=== PATIENT | female | born 1980 | race Caucasian/White ===

== ENCOUNTER → 2023-07-02 16:32 | Outpatient (CLI) | payer OTHER, SELFPAY ==
--- NOTE | 2023-07-02 16:34 | DI.MG.S_ITS ---
BILATERAL DIGITAL SCREENING MAMMOGRAM 3D/2D WITH CAD: 07/02/2023 CLINICAL: Baseline exam. Routine screening. No prior exams were available for comparison. Both breasts are heterogeneously dense, which may obscure small masses (category c / 51-75% glandular tissue). Current study was also evaluated with a Computer Aided Detection (CAD) system. There are benign intramammary nodes in the right breast. No significant masses, calcifications, or other findings are seen in either breast. IMPRESSION: BENIGN There is no mammographic evidence of malignancy. A 1 year screening mammogram is recommended. Based on the Tyrer Cuzick model (a risk assessment model) the patient's lifetime risk is 14.7% and her 10 year risk is 2.4%. According to the ACR, ACS, and NCCN guidelines, an annual breast MRI exam along with mammogram is recommended if the patient's lifetime risk is 20% or greater. This exam was interpreted at Station ID: [id number]. NOTE: For mammograms, a report in lay terms will be sent to the patient. Approximately 15% of breast malignancies will not be visualized mammographically. In the management of a palpable breast mass, a negative mammogram must not discourage biopsy of a clinically suspicious lesion. Electronically Signed By: Roney little/roque:07/03/2023 07:14:58 letter sent: Normal Exam ACR BI-RADS Category 2: Benign Finding(s) 3342F
== END ==
PROVIDERS: PCP Family Medicine; Referring Provider Family Medicine; Visit Provider Family Medicine
DX: Z12.31 Encounter for screening mammogram for malignant neoplasm of breast (principal)
CPT/HCPCS: 77063; 77067

== ENCOUNTER → 2023-09-04 14:09 | Outpatient (CLI) | payer OTHER, SELFPAY ==
--- NOTE | 2023-09-04 14:11 | DI.US.S_ITS ---
PROCEDURE: US PELVIC COMPLETE INDICATIONS: IUD LOCATION TECHNIQUE: Real-time scanning was performed of the pelvic organs, with image documentation. Additional endovaginal scanning was necessary due to incomplete visualization of the adnexal and endometrial structures by transabdominal scanning. COMPARISON: None. FINDINGS: Uterus: Uterus is retroverted and normal in size at 7.8 x 4.8 x 5.6 cm. The myometrium is homogeneous. The endometrium measures 8 mm combined thickness. IUD within the central endometrium. Ovaries: The right ovary measures 3.5 x 1.6 x 2.4 cm, with a calculated ovarian volume of 7 cc. The left ovary measures 3.0 x 1.6 x 2.1 cm, with a calculated ovarian volume of 5 cc. The ovaries have a normal sonographic appearance. Less than 12 follicles can be seen in each ovary. No adnexal masses are seen. Other: No pathologic free abdominal or pelvic fluid. IMPRESSION: IUD within the central uterus. We strive to produce accurate, complete, and clear reports of imaging services. To assist us in improving patient care, this report was composed using standard report templates and voice recognition software. Therefore, it may contain abnormal punctuation, insertions and/or omissions. Occasional wrong-word or sound-alike substitutions may occur. Though we review the report and make efforts to correct it, we do recommend that the report be read carefully in proper context to recognize any text inaccuracies. Dictated by: Efren Sams M.D. on 09/04/2023 at 17:08 Approved by: Efren Sams M.D. on 09/04/2023 at 17:09
== END ==
LOC: US 14:10
PROVIDERS: PCP Family Medicine; Referring Provider Family Medicine; Visit Provider Family Medicine
DX: T83.32XA Displacement of intrauterine contraceptive device, initial encounter (principal)
CPT/HCPCS: 76830; 76856

== ENCOUNTER 2024-05-04 07:42 | Observation (INO) | payer OTHER, SELFPAY ==
[2024-05-04] VITALS (22 sets, daily range): BP systolic 123–168; BP diastolic 69–93; PULSE 66–81; RESP 11–22; TEMP 36.8–37.6; O2SAT 93–100; BMI 21.9
--- NOTE | 2024-05-04 | PATH_ITS ---
[facility] Accession Number: [id number] No. of containers..01 Tissue . 01 Material submitted: . gallbladder - GALLBLADDER . 01 Diagnosis: GALLBLADDER, CHOLECYSTECTOMY: Acute on chronic cholecystitis and cholelithiasis. One benign lymph node identified. [facility] 05/10/2024 1120 Local . 01 Electronically signed: . Salome Kerns MD, Pathologist NPI- [id number] . 01 Gross description: . Specimen is received in formalin, labeled with two patient identifiers and gallbladder, and consists of an 11.2 x 5.2 x 3.4 cm unopened gallbladder. The serosal surface is diffusely hyperemic with a moderate amount of fibrous adhesions. The cystic duct is identified and inked black, and the liver bed is cauterized and is inked blue. Additionally, there is a 1.5 x 1.1 x 0.8 cm, red-mojica, well-circumscribed lymph node adjacent to the cystic duct, which is sectioned to show a red-mojica, homogeneous cut surface. There is a 0.4 x 0.2 x 0.2 cm probe patent cystic duct. The gallbladder wall is focally edematous and ranges from 0.2 up to 0.3 cm in thickness. The mucosa is mojica-red, finely granular, and otherwise unremarkable. The gallbladder has a 1.5 x 1.4 x 1.3 cm aggregate of black, smooth gallstones, as well as a 2.0 x 1.5 x 1.0 cm aggregate of clotted blood, and approximately 40 mL of a clear to serous fluid. Police Chief sections are submitted as follows: . A1: Cystic duct and one lymph node serially sectioned. A2: Police Chief sections of gallbladder. ([id number]) /MRV 05/06/2024 1825 Local . 01 Pathologist provided ICD-10: K81.1, K80.10, K80.20 . 01 CPT . 171318 Specimen Comment: A courtesy copy of this report has been sent to [phone] Performed at: [address] [id number] MD Nik Cleveland MD Phone: [phone]
--- NOTE | 2024-05-04 08:01 | ED.ABDPAIN ---
HPI - Abdominal Pain General Chief Complaint: Abdominal Pain Stated Complaint: vomiting, r side sharp pain t-1 Time Seen by Provider: 05/04/24 07:44 Source: patient Mode of arrival: Ambulatory History of Present Illness HPI narrative: 43-year-old female with no prior abdominopelvic surgeries, history of IUD, awakened 0200 with right-sided abdominal pain. No known gallbladder problems. No known kidney stone problems. No dysuria frequency of urination. She has had multiple episodes of nonbloody emesis, and a couple loose stools. No black or red stools. No black or red emesis. No history of known ulcers of the stomach. No injury or trauma new activities. No exposure to persons with similar symptoms. Last menstrual period was 2 weeks ago on time and normal. Denies flank pain, denies back pain. Related Data Previous Rx's Medication Instructions Recorded acetaminophen 500 mg capsule 1,000 mg (2 x 500 mg) PO Q6H PRN 05/04/24 pain #60 caps celecoxib 200 mg capsule (Celebrex) 200 mg PO BID #20 caps 05/04/24 docusate sodium 100 mg capsule 100 mg PO BID #30 caps 05/04/24 (Colace) oxycodone 5 mg tablet 5 mg PO Q6H PRN pain #20 tabs 05/04/24 Allergies Allergy/AdvReac Type Severity Reaction Status Date / Time No Known Drug Allergies Allergy Verified 05/04/24 16:26 Review of Systems Review of Systems Narrative: Per HPI Patient History Family History Grandfather Cancer Grandmother Age: 94 Dementia Mother Age: 67 Hypothyroid Grandfather Age: 87 Stroke Social History household members: spouse Smoking Status: Never smoker alcohol intake: current Smoking Status: Never smoker alcohol intake frequency: 0-2 drinks per day Alcohol type: wine Substance Use Type: former substance user Exam Narrative Exam Narrative: GENERAL: Well-developed patient, in mild distress. HEAD: Atraumatic. Normocephalic. EYES: Pupils equal round and reactive. Extraocular motions intact. No scleral icterus. No injection or drainage. ENT: Nose without bleeding, purulent drainage. Throat without erythema, tonsillar hypertrophy or exudate. Airway patent. NECK: Trachea midline. Non tender CARDIOVASCULAR: Regular rate and rhythm without murmurs, gallops, or rubs. RESPIRATORY: Clear to auscultation. Breath sounds equal bilaterally. No wheezes, rales, or rhonchi. GASTROINTESTINAL: Abdomen with some tenderness right upper quadrant, right middle quadrant, less at right lower quadrant. No distention. No guarding or rebound. EXTREMITIES: No edema or joint tenderness. BACK: Nontender without deformity or crepitance. No flank tenderness. NEURO: AOx3. Nonfocal gross motor exam SKIN: No rash or erythema of visible areas Initial Vital Signs Initial Vital Signs: Vital Signs Temperature 98.9 F 05/04/24 07:53 Pulse Rate 67 05/04/24 07:53 Respiratory Rate 17 05/04/24 07:53 Blood Pressure 162/70 H 05/04/24 07:53 Pulse Oximetry 100 05/04/24 07:53 Oxygen Delivery Method Room Air 05/04/24 07:53 Course Orders Ordered: Acetaminophen (Acetaminophen 325 Mg Tablet) 650 mg PO Q6H PRN PRN Reason: Fever/Mild Pain (1-3) Benzocaine (Benzocaine/Menthol 1 Sergio Pkt) 1 each PO PRN PRN PRN Reason: Sore Throat Fentanyl (Fentanyl 100 Mcg/2 Ml Inj) 0 mcg IV Q5MIN PRN PRN Reason: Pain, Severe (7-10) Hydromorphone HCl (Hydromorphone 0.5 Mg Inj) 0.5 mg IV Q2H PRN PRN Reason: Pain, Severe (7-10) Last Admin: 05/04/24 13:43 Dose: 0.5 mg Documented By: Admin: 05/04/24 11:31 Dose: 0.5 mg Documented By: BT Hydromorphone HCl (Hydromorphone 1 Mg Inj) 0 mg IV Q5MIN PRN PRN Reason: Pain, Mild (1-3) Sodium Chloride (Normal Saline 0.9%) 1,000 mls @ 100 mls/hr IV CONT [facility] Last Admin: 05/04/24 11:31 Dose: 100 mls/hr Documented By: BT Lactated Ringer's (Lactated Ringers) 1,000 mls @ 42 mls/hr IV CONT [facility] Last Admin: 05/04/24 18:25 Dose: 42 mls/hr Documented By: Infusion: 05/04/24 18:25 Dose: Infused Documented By: Admin: 05/04/24 16:56 Dose: 42 mls/hr Documented By: IF Ibuprofen (Ibuprofen 600 Mg Tablet) 600 mg PO Q6H PRN PRN Reason: Fever/Mild Pain (1-3) Metoclopramide HCl (Metoclopramide 10 Mg/2 Ml Inj) 5 mg IV Q6HR PRN PRN Reason: Nausea And Vomiting Last Admin: 05/04/24 15:39 Dose: 5 mg Documented By: BT Metoclopramide HCl (Metoclopramide 10 Mg/2 Ml Inj) 10 mg IV NOW PRN PRN Reason: Nausea And Vomiting Naloxone HCl (Naloxone 0.4 Mg/Ml Vial) 0.2 mg IV Q2MIN PRN PRN Reason: Opiate Reversal Ondansetron HCl (Ondansetron 4 Mg/2 Ml Inj) 4 mg IV NOW PRN PRN Reason: Nausea And Vomiting Ondansetron HCl (Ondansetron 4 Mg Odt) 4 mg PO NOW PRN PRN Reason: Nausea And Vomiting Last Admin: 05/04/24 13:42 Dose: 4 mg Documented By: BLANCO Ondansetron HCl (Ondansetron 4 Mg/2 Ml Inj) 4 mg IV NOW PRN PRN Reason: Nausea And Vomiting Oxycodone HCl (Oxycodone Ir 5 Mg Tablet) 5 mg PO Q3H PRN PRN Reason: Pain, Moderate (4-6) Oxycodone HCl (Oxycodone Ir 5 Mg Tablet) 5 mg PO PAC[place]OW PRN PRN Reason: Mild or moderate pain Discontinued Medications Acetaminophen (Acetaminophen 325 Mg Tablet) 975 mg PO NOW PRN PRN Reason: Pain, Moderate (4-6) Bupivacaine HCl (Bupivacaine 0.25% (Pf) Vial) 30 ml INJ NOW ONE Stop: 05/04/24 17:50 Last Admin: 05/04/24 17:50 Dose: 30 ml Documented By: JANIA Hydromorphone HCl (Hydromorphone 0.5 Mg Inj) 0.5 mg IV NOW ONE Stop: 05/04/24 08:17 Last Admin: 05/04/24 08:35 Dose: 0.5 mg Documented By: STEPHEN Hydromorphone HCl (Hydromorphone 0.5 Mg Inj) 0.5 mg IV NOW ONE Stop: 05/04/24 10:05 Last Admin: 05/04/24 10:16 Dose: 0.5 mg Documented By: RB Sodium Chloride (Normal Saline 0.9%) 1,000 mls @ 1,000 mls/hr IV BOLUS ONE Stop: 05/04/24 09:20 Last Infusion: 05/04/24 09:28 Dose: Infused Documented By: Admin: 05/04/24 08:36 Dose: 1,000 mls/hr Documented By: RB Piperacillin Sod/Tazobactam (Sod 4.5 gm/ Sodium Chloride) 100 mls @ 200 mls/hr IV NOW ONE Stop: 05/04/24 10:05 Last Infusion: 05/04/24 10:49 Dose: Infused Documented By: Admin: 05/04/24 10:16 Dose: 200 mls/hr Documented By: RB Acetaminophen (Ofirmev) 1,000 mg in 100 mls @ 400 mls/hr IV NOW ONE Stop: 05/04/24 17:03 Last Admin: 05/04/24 16:55 Dose: 400 mls/hr Documented By: IF Piperacillin Sod/Tazobactam (Sod 4.5 gm/ Sodium Chloride) 100 mls @ 200 mls/hr IV NOW ONE Stop: 05/04/24 18:29 Last Admin: 05/04/24 18:00 Dose: 200 mls/hr Documented By: HARVEY Ondansetron HCl (Ondansetron 4 Mg/2 Ml Inj) 4 mg IV NOW ONE Stop: 05/04/24 08:17 Last Admin: 05/04/24 08:36 Dose: 4 mg Documented By: RB Scopolamine (Scopolamine 1 Patch) 1 patch TOP NOW ONE Stop: 05/04/24 16:50 Last Admin: 05/04/24 16:55 Dose: 1 patch Documented By: IF Vital Signs Vital signs: Vital Signs - 8 hr 05/04/24 09:00 05/04/24 09:00 05/04/24 09:37 Pulse Rate 66 80 Respiratory Rate 14 Blood Pressure 152/76 H Pulse Oximetry 100 93 05/04/24 10:00 05/04/24 10:01 05/04/24 10:01 Pulse Rate 77 74 Respiratory Rate 22 13 Blood Pressure 168/69 H Pulse Oximetry 98 99 MDM - Abdominal Pain Medical Records Attestation: I reviewed the patient's medical records. Lab Data Lab results narrative: White blood cell count 6200, hemoglobin 11, CMP unremarkable, LFTs unremarkable. HCG negative. 05/04/24 08:30 05/04/24 08:30 Labs: Lab Results 05/04/24 Range/Units 08:30 WBC 6.2 (4.5-11.0) X10^3/uL RBC 4.49 (4.0-5.2) X10^6/uL Hgb 11.1 L (12.0-16.0) g/dL Hct 34.3 L (36-46) % MCV 76.4 L (80-100) fL MCH 24.8 L (26-34) PG MCHC 32.5 (30-36) % RDW 18.3 H (11.6-14.8) % Plt Count 173 (150-400) X10^3/uL Neut % (Auto) 92.0 H (50-75) % Lymph % (Auto) 5.3 L (25-40) % [place] % (Auto) 2.4 L (3-14) % Eos % (Auto) 0.0 L (2-4) % Baso % (Auto) 0.3 (0-2) % Neut # (Auto) 5700 (9082-2888) /uL Lymph # (Auto) 300 L (3884-7848) /uL [place] # (Auto) 200 (0-900) /uL Eos # (Auto) 0 (0-450) /uL Baso # (Auto) 0 (0-100) /uL Sodium 137 (137-145) mmol/L Potassium 4.2 (3.4-5.1) mmol/L Chloride 109 H (98-107) mmol/L Carbon Dioxide 22 (22-32) mmol/L BUN 12 (7-17) mg/dL Creatinine 0.58 (0.52-1.04) mg/dL Estimated GFR > 60 (>60) mL/min BUN/Creatinine Ratio 20.7 (6-22) Glucose 119 H (70-100) mg/dL Calcium 8.4 (8.4-10.2) mg/dL Total Bilirubin 0.6 (0.2-1.3) mg/dL AST 34 (14-36) IU/L ALT 17 (<35) IU/L Alkaline Phosphatase 49 (38-126) U/L Total Protein 7.1 (6.3-8.2) g/dL Albumin 4.2 (3.5-5.0) g/dL Globulin 2.9 (1.7-4.1) g/dL Albumin/Globulin Ratio 1.4 (1.0-2.8) Lipase 39 (23-300) U/L HCG, Quant < 2.39 mIU/mL Imaging Data CT scan - abdomen/pelvis: Radiologist's Impression: [address] [id number] [address] Scan Report Signed Patient: Estephanie Wolfe MR#: [id number] : 1980 Acct:[id number] Age/Sex: 43 / F Date of Service: 05/04/24 Loc: ED Accession Number: [id number] Procedure: CT abdomen pelvis w con Ordering Provider: Michael Gipson MD PROCEDURE: CT ABDOMEN PELVIS W CON INDICATIONS: Right sided abd pain since 0200, [facility] neg TECHNIQUE: After the administration of intravenous contrast, axial sections acquired from the lung bases to the pubic symphysis. Coronal and sagittal reformats were performed. For radiation dose reduction, the following was used: automated exposure control, adjustment of mA and/or kV according to patient size. COMPARISON: None. FINDINGS: Image quality: Diagnostic. Lower Chest: No significant findings. ABDOMEN: Liver: No solid mass. Gallbladder: The gallbladder is distended, with a focally thickened wall. There is an obstructing stone at the neck measuring 1.5 centimeter. Pericholecystic edema is present. Biliary ducts: No biliary dilation. Pancreas: No ductal dilation. Spleen: Size is within normal limits. Adrenal Glands: No adrenal nodules. Kidneys and Ureters: No hydronephrosis. No solid mass. No complex renal cystic lesion which requires follow up. Stomach and Bowel: Normal colonic caliber, without significant wall thickening. Normal appendix. Peritoneum: No abnormal intraperitoneal fluid. No free air. Ventral Wall: No significant ventral hernia. Abdominal Nodes: No retroperitoneal or mesenteric adenopathy by size criteria. Vessels: Aorta and inferior vena cava are normal in size. PELVIS: Pelvic Organs: IUD within the central uterus. Bladder: No bladder wall thickening, accounting for underdistention. Pelvic Nodes: No enlarged lymph nodes. Miscellaneous: No inguinal hernias are seen. Bones: No aggressive osseous abnormality. IMPRESSION: Acute cholecystitis without perforation or gangrene. Dictated by: Efren Sams M.D. on 05/04/2024 at 9:41 Approved by: Efren Sams M.D. on 05/04/2024 at 9:47 MDM Narrative Medical decision making narrative: 43-year-old female with atraumatic acute onset right-sided abdominal pain, no flank pain for the last 5-6 hours, multiple episodes nonbloody emesis, some loose stool. Afebrile, sirs screen negative. Some tenderness right upper quadrant and right middle quadrant, no guarding or rebound or distention. DDx consider biliary colic, cholecystitis, choledocholithiasis, peptic ulcer, UTI, ureteral stone, enteritis, colitis, diverticulitis, appendicitis, adenitis, muscular, lower lobe pneumonia, other. Patient uncomfortable appearing, IV Dilaudid/Zofran, IV fluid bolus. Labs pending. GI panel requested, if stool specimen received. Anticipate advanced imaging, patient agreeable. White blood cell count unremarkable, hCG negative. CT abdomen and pelvis with IV contrast ordered. Pain seems improved after Dilaudid dose. CT shows acute cholecystitis without perforation. See radiology report. 1000, case discussed with surgery Dr. Richey, accepts patient for admission, likely to operating room later today, first dose IV Zosyn antibiotic for now, keep NPO. Patient made aware of CT findings and recommendations for surgery. IV Zosyn antibiotic 1st dose ordered. Keep NPO. Patient still in pain, we will repeat IV Dilaudid dose. Critical Care Time Critical Care Time Critical Care Time: Yes Total Critical Care Time: 35 Attestation: The high probability of a clinically significant, sudden or life threatening deterioration of the [abdominopelvic, gastrointestinal] system(s) required my full and direct attention, intervention and personal management. The aggregate critical care time was [35] minutes. This time is in addition to time spent performing reported procedures but includes the following: [x] Data Review and interpretation [x] Patient assessment and monitoring of vital signs [x] Documentation [x] Medication orders and management Discharge Plan Departure Patient Disposition: Admitted as Observation Clinical Impression: Right sided abdominal pain, Acute calculous cholecystitis Admit Date/Time: 05/04/24 10:06 Admit Provider: Bryson Richey
[2024-05-04] MEDS: HYDROMORPHONE 0.5 MG INJ IV ×4 (08:35→13:43)
[2024-05-04] MEDS: ONDANSETRON 4 MG/2 ML INJ IV (08:36)
[2024-05-04] MEDS: SODIUM CHLORIDE 0.9% 1,000 ML 1000 ML IV (08:36)
[2024-05-04 08:38] LABS: Add Manual Diff / Slide Review NO; Basophils Absolute Auto 0 /uL (0-100); Basophils Percent Auto 0.3 % (0-2); Eosinophils Absolute Auto 0 /uL (0-450); Hematocrit 34.3 % (36-46); Hemoglobin 11.1 g/dL (12.0-16.0); Lymphocytes Absolute Auto 300 /uL (1100-4500); Lymphocytes Percent Auto 5.3 % (25-40); Mean Corpuscular HGB Conc 32.5 % (30-36); Mean Corpuscular Hemoglobin 24.8 PG (26-34); Mean Corpuscular Volume 76.4 fL (80-100); Monocytes Absolute Auto 200 /uL (0-900); Monocytes Percent Auto 2.4 % (3-14); Neutrophils Absolute Auto 5700 /uL (1500-7000); Platelet Count 173 X10^3/uL (150-400); Red Blood Cell Count 4.49 X10^6/uL (4.0-5.2); Red Cell Distribution Width 18.3 % (11.6-14.8); White Blood Cell Count 6.2 X10^3/uL (4.5-11.0)
[2024-05-04 08:50] LABS: Alanine Aminotransferase 17 IU/L (<35); Albumin 4.2 g/dL (3.5-5.0); Albumin Globulin Ratio 1.4 (1.0-2.8); Alkaline Phosphatase 49 U/L (38-126); Aspartate Aminotransferase 34 IU/L (14-36); BUN Creatinine Ratio 20.7 (6-22); Bilirubin Total 0.6 mg/dL (0.2-1.3); Blood Urea Nitrogen 12 mg/dL (7-17); Calcium 8.4 mg/dL (8.4-10.2); Carbon Dioxide 22 mmol/L (22-32); Chloride 109 mmol/L (98-107); Estimated Glomerular Filt Rate > 60 mL/min (>60); Globulin 2.9 g/dL (1.7-4.1); Glucose 119 mg/dL (70-100); HEMOLYSIS 32 (0-50); Lipase 39 U/L (23-300); Potassium 4.2 mmol/L (3.4-5.1); Sodium 137 mmol/L (137-145); Total Protein 7.1 g/dL (6.3-8.2)
[2024-05-04 09:18] LABS: HCG Quantitative /Beta subunit < 2.39 mIU/mL
--- NOTE | 2024-05-04 09:22 | DI.CT.S_ITS ---
PROCEDURE: CT ABDOMEN PELVIS W CON INDICATIONS: Right sided abd pain since 0200, [facility] neg TECHNIQUE: After the administration of intravenous contrast, axial sections acquired from the lung bases to the pubic symphysis. Coronal and sagittal reformats were performed. For radiation dose reduction, the following was used: automated exposure control, adjustment of mA and/or kV according to patient size. COMPARISON: None. FINDINGS: Image quality: Diagnostic. Lower Chest: No significant findings. ABDOMEN: Liver: No solid mass. Gallbladder: The gallbladder is distended, with a focally thickened wall. There is an obstructing stone at the neck measuring 1.5 centimeter. Pericholecystic edema is present. Biliary ducts: No biliary dilation. Pancreas: No ductal dilation. Spleen: Size is within normal limits. Adrenal Glands: No adrenal nodules. Kidneys and Ureters: No hydronephrosis. No solid mass. No complex renal cystic lesion which requires follow up. Stomach and Bowel: Normal colonic caliber, without significant wall thickening. Normal appendix. Peritoneum: No abnormal intraperitoneal fluid. No free air. Ventral Wall: No significant ventral hernia. Abdominal Nodes: No retroperitoneal or mesenteric adenopathy by size criteria. Vessels: Aorta and inferior vena cava are normal in size. PELVIS: Pelvic Organs: IUD within the central uterus. Bladder: No bladder wall thickening, accounting for underdistention. Pelvic Nodes: No enlarged lymph nodes. Miscellaneous: No inguinal hernias are seen. Bones: No aggressive osseous abnormality. IMPRESSION: Acute cholecystitis without perforation or gangrene. Dictated by: Efren Sams M.D. on 05/04/2024 at 9:41 Approved by: Efren Sams M.D. on 05/04/2024 at 9:47
[2024-05-04] MEDS: PIPERACILLIN/TAZO 4.5 GM in SODIUM CHLORIDE 0.9% 100 ML IV ×2 (10:16→18:00)
[2024-05-04] MEDS: SODIUM CHLORIDE 0.9% 1,000 ML 100 ML IV (11:31)
[2024-05-04] MEDS: ONDANSETRON 4 MG ODT PO (13:42)
[2024-05-04] MEDS: METOCLOPRAMIDE 10 MG/2 ML INJ 5 MG IV (15:39)
--- NOTE | 2024-05-04 16:53 | PM.HP.1 ---
History of Present Illness History of Present Illness Date Patient Seen: 05/04/24 Time Patient Seen: 16:53 Chief complaint: vomiting, r side sharp pain t-1 Narrative: 43-year-old woman no significant past medical history who presents with acute cholecystitis. She developed severe acute right upper quadrant abdominal pain with associated nausea and emesis for the past 24 hours. She has had 1 previous similar episode but less severe. On admission afebrile without leukocytosis or abnormal liver function tests. CT abdomen pelvis demonstrates an obstructing 1.5 cm stone within the neck of the gallbladder with pericholecystic fluid and thickening of the gallbladder wall. She has never had any previous surgery. [facility], [facility] Family History Grandfather Cancer Grandmother Age: 94 Dementia Mother Age: 67 Hypothyroid Grandfather Age: 87 Stroke Social History household members: spouse Smoking Status: Never smoker alcohol intake: current Meds Home Medications and Allergies Home Medications Medication Instructions Recorded Confirmed Type No Known Home Medications 05/04/24 05/04/24 History Allergies Allergy/AdvReac Type Severity Reaction Status Date / Time No Known Drug Allergies Allergy Verified 05/04/24 16:26 Exam Vital Signs (past 8 hours): - 05/04/24 09:00 05/04/24 09:00 05/04/24 09:37 Temperature Pulse Rate 66 80 Respiratory Rate 14 Blood Pressure 152/76 H Pulse Oximetry 100 93 Oxygen Delivery Method Oxygen Flow Rate 05/04/24 10:00 05/04/24 10:01 05/04/24 10:01 Temperature Pulse Rate 77 74 Respiratory Rate 22 13 Blood Pressure 168/69 H Pulse Oximetry 98 99 Oxygen Delivery Method Oxygen Flow Rate 05/04/24 10:30 05/04/24 10:30 05/04/24 11:00 Temperature 98.3 F Pulse Rate 74 74 Respiratory Rate 11 L 16 Blood Pressure 147/93 H 155/85 H Pulse Oximetry 100 97 Oxygen Delivery Method Oxygen Flow Rate 05/04/24 11:17 05/04/24 15:00 Temperature Pulse Rate Respiratory Rate Blood Pressure Pulse Oximetry 98 97 Oxygen Delivery Method Room Air Room Air Oxygen Flow Rate 0 0 Oxygen Delivery Method Room Air Oxygen Flow Rate 0 Narrative Exam Narrative: GENERAL: A well nourished, well developed adult woman resting comfortably, in no acute distress. HEENT: Normocephalic, atraumatic. No scleral icterus CHEST: Rising symmetrically. No audible wheezes CARDIOVASCULAR: Warm and well perfused. Regular rate ABDOMEN: Tender right upper quadrant. No peritonitis EXTREMITIES: Normal tone and without edema. NEUROLOGIC: Moving all extremities spontaneously. No gross motor deficits. Objective Labs 05/04/24 08:30 05/04/24 08:30 Labs: Laboratory Results - last 24 hr 05/04/24 08:30 WBC 6.2 RBC 4.49 Hgb 11.1 L Hct 34.3 L MCV 76.4 L MCH 24.8 L MCHC 32.5 RDW 18.3 H Plt Count 173 Neut % (Auto) 92.0 H Lymph % (Auto) 5.3 L [place] % (Auto) 2.4 L Eos % (Auto) 0.0 L Baso % (Auto) 0.3 Neut # (Auto) 5700 Lymph # (Auto) 300 L [place] # (Auto) 200 Eos # (Auto) 0 Baso # (Auto) 0 Sodium 137 Potassium 4.2 Chloride 109 H Carbon Dioxide 22 BUN 12 Creatinine 0.58 Estimated GFR > 60 BUN/Creatinine Ratio 20.7 Glucose 119 H Calcium 8.4 Total Bilirubin 0.6 AST 34 ALT 17 Alkaline Phosphatase 49 Total Protein 7.1 Albumin 4.2 Globulin 2.9 Albumin/Globulin Ratio 1.4 Lipase 39 HCG, Quant < 2.39 Assessment & Plan Assessment and plan (1) Acute calculous cholecystitis: Status: Acute Assessment & Plan narrative: 43-year-old healthy woman with symptoms and radiographic findings consistent with acute cholecystitis. I recommend proceeding with laparoscopic cholecystectomy. Overview of the operation was discussed with the patient. I topher a diagram to illustrate the disease process. Operative risks including hemorrhage, infection, damage to surrounding structures, conversion to open were discussed. Her questions have been answered. She provides her consent to proceed. Time-Based Coding :: [TOTAL MINUTES] spent with patient and on the chart (including review of chart, obtaining history, exam, reviewing outside data, placing orders, documenting exam and treatment plan, and counseling patient) on [DATE].
[2024-05-04] MEDS: ACETAMINOPHEN IV 1,000 MG/100 ML VIAL 400 MG IV (16:55)
[2024-05-04] MEDS: SCOPOLAMINE 1 PATCH TOP (16:55)
[2024-05-04] MEDS: LACTATED RINGERS 1,000 ML 42 ML IV ×2 (16:56→18:25)
--- NOTE | 2024-05-04 17:31 | SUR.OPER ---
Supine on padded OR bed, head on pillow, safety belt at thigh, left arm padded and tucked at side. Right arm secured on padded arm board <90 degrees abduction. Legs uncrossed. Padded footboard in place. Tape over blanket to secure lower legs.
[2024-05-04] MEDS: BUPIVACAINE 0.25% (PF) VIAL 30 ML INJ (17:50)
--- NOTE | 2024-05-04 18:29 | PM.OP.1 ---
Operative Date/Time/Diagnoses Date of procedure: 05/04/24 Time of procedure: 18:29 Pre-op diagnosis: Acute cholecystitis Post-op diagnosis: same Procedure & Clinicians Procedure: Laparoscopic cholecystectomy Same procedure as scheduled: Yes Indications: 43-year-old woman with symptoms and radiographic findings consistent with acute cholecystitis with a gallstone lodged within the neck of the gallbladder. Surgeon: Bryson Richey Safety Instruction Police Officer: Jorden Davis Anesthesia Type: General Operative Notes Findings: Distended tense gallbladder consistent with acute cholecystitis Critical view of safety established Specimen(s): other (Gallbladder) Estimated Blood Loss (mL): 50 Procedure in detail: The patient was placed supine on the table and bilateral lower extremity compression devices were applied. Anesthesia was induced they were intubated with an endotracheal tube and received 2g of Ancef. A time-out was performed. They were prepped and draped in sterile fashion. An infraumbilical incision was made. The fascia was elevated incised and the abdomen was entered atraumatically. A blunt tip 12mm balloon trocar was then inserted, pneumoperitoneum was established and inspection of the abdomen demonstrated no evidence of injury. They were placed head up and right side up and then a 11 mm port was placed high in the epigastrium and two 5mm in the right upper quadrant. Gallbladder was distended and taut consistent with acute cholecystitis. It was percutaneously drained to facilitate its manipulation. The gallbladder was grasped by the fundus and retracted over the liver and retracted laterally by the infundibulum. Using electrocautery the lateral plane between the gallbladder and the liver was opened towards the fundus. The gallbladder was then retracted laterally and the medial plane was developed in the same manner. With the gallbladder mobilized the bottom of the cystic plate was visualized. The hepatocystic triangle was meticulosly skeletonized with blunt dissection of fat and fibrous tissue from both the front and the back. Only two structures were then clearly seen entering the gallbladder the cystic duct and the cystic artery. With the critical view of safety fully established the cystic duct was clipped twice proximally and once distally using the 10 mm Weck hemoclip applied under direct visualization and then sharply divided. The cystic artery was divided in the same fashion. The gallbladder was removed from the liver bed using electro cautery. The liver bed was then inspected for hemostasis and this was achieved. The abdomen was irrigated with sterile saline and inspection was made that showed the clips in good position. The specimen was removed using Endo-Catch. The abdomen was desufflated. The umbilical fascia was closed with 0 Vicryl in a [id number] fashion under direct visualization. Skin incisions were irrigated and closed with 4-0 Monocryl. 30 ml of 0.25% bupivacaine was infiltrated into the subcutaneous tissue of the incisions. The wounds were sealed with Dermabond. Patient emerged from anesthesia was extubated and transferred to recovery in stable condition. The sponge and instrument count at the end of the operation was correct. Complications: none Post-operative Condition: stable Disposition: Acute Care
[2024-05-04] MEDS: ACETAMINOPHEN 325 MG TABLET 650 MG PO (21:00)
[2024-05-05] MEDS: SODIUM CHLORIDE 0.9% 1,000 ML 100 ML IV (00:28)
[2024-05-05 01:00] VITALS: O2SAT 99
[2024-05-05 02:00] VITALS: BP 119/72; PULSE 67; RESP 19; O2SAT 97
[2024-05-05 05:00] VITALS: O2SAT 98
[2024-05-05 06:00] VITALS: BP 110/67; PULSE 74; RESP 18; O2SAT 98
[2024-05-05] MEDS: ACETAMINOPHEN 325 MG TABLET 650 MG PO (06:40)
--- NOTE | 2024-05-05 09:56 | PC.NURSE ---
Day shift: Paperwork signed and all questions answered. Pt has all personal belongings. Spouse in room for teachings. Left unit at approx [phone] via . Taken by Latesha CASTLE.. Spouse is driving them home. They live local.
--- NOTE | 2024-05-05 12:45 | CM.DANOTE ---
Initial DCP Assessment Visit Note Reviewed EMR and team rounds for status updates. Pt had already discharged from the hospital prior to this [facility] [facility]'s ability to meet with her due to triage needs. Pt lives independently at baseline in her own home with her family in [place]. Payor: Lizbet PCP: Dr. Yu Pt is a 43 year-old F who presented to the ED yesterday morning with c/o upper right quadrant abdominal pain that started in the middle of the night and continued to worsen. She also had several episodes of vomiting, was nauseous, and had some episodes of loose diarrhea. CT abd/pelvis showed cholecystitis. Surgery was consulted, and the plan was made for her to be made NPO, start IV ABO's/pain meds, and surgery to be scheduled later that afternoon. Today she was recovering well and was able to d/c home first thing this morning. No CM needs were identified during this admission. Discharge Planning/Care Management CM Discharge Assessment Start: 05/05/24 12:41 Freq: Status: Active Protocol: Document 05/05/24 12:41 DPL (Rec: 05/05/24 12:43 DPL [id number]) Discharge Planning Assessment Assigned Houseperson SUSAN Bardales Advance Directives? No History Provided By Patient,Medical Record Has Patient been admitted in last 30 No days? Prior Living Arrangements House Household Members spouse Type of transporation used prior to Drives own vehicle admit Independent with ADL's Yes Is patient alert and oriented? Yes Comment N/A Comment No anticipated home d/c needs at this time. Barriers to Discharge No Discharge Plan Home Transportation Arrangement Spouse Referrals Initiated None needed Whiteboard Updated in Patient Room with Yes name and ext. # of Houseperson Review Status In Process Please Provide Date Initial DC 05/05/24 Assessment Was Performed
== END 2024-05-05 09:58 | disposition home or self-care (01) ==
LOC: ED 10:04 → AC 10:07
PROVIDERS: Admitting Provider Surgery; Emergency Provider Emergency Medicine; PCP Family Medicine; Referring Provider Emergency Medicine; Visit Provider Surgery
PROC: 0FT44ZZ Resection of Gallbladder, Percutaneous Endoscopic Approach (ICD-10-PCS; CPT 47562; principal; 2024-05-04 17:45)
DX: K80.13 Calculus of gallbladder with acute and chronic cholecystitis with obstruction (principal)
CPT/HCPCS: 47562; 36415; 74177; 80053; 83690; 84702; 85025; 96365; 96375; 96376; 99222; 99284; 99285; G0378; J0134; J1100; J1170; J1885; J2250; J2405; J2543; J2704; J2765; J3010; J3490; Q9967

== ENCOUNTER → 2025-07-24 14:28 | Outpatient (CLI) | payer OTHER, SELFPAY ==
[2024-05-04 11:17] VITALS: BMI 21.9
--- NOTE | 2025-07-24 14:29 | DI.MG.S_ITS ---
MM screening mammo BI: 07/24/2025. BI-RADS: 1 CLINICAL: 44-year old female for bilateral screening mammogram. Tyrer-Cuzick lifetime risk of 9.9%. No personal or first-degree family history of breast cancer. PRIOR EXAMS 07/02/2023. MAMMOGRAPHY TECHNIQUE: 2D and 3D (tomosynthesis) digital mammographic views obtained, with additional images as needed for full coverage. Current study was also evaluated with a Computer Aided Detection (CAD) system. DENSITY C. The breasts are heterogeneously dense, which may obscure small masses. MAMMOGRAPHY FINDINGS Bilateral: No suspicious mass, asymmetry, microcalcification, or other abnormality seen. IMPRESSION: * No evidence of malignancy. RECOMMENDATIONS Bilateral * Annual screening mammography. OVERALL ASSESSMENT CATEGORY BI-RADS-1: Negative. [employer] recommends annual screening mammography beginning at age 40 for women with average risk of breast cancer. ELECTRONICALLY SIGNED: Elsa Escalante M.D. on 08/01/2025 at 10:49:08 AM PT Interpreting Station ID: [id number]
== END ==
LOC: MAMMO 14:28
PROVIDERS: PCP Family Medicine; Referring Provider Family Medicine; Visit Provider Family Medicine
DX: Z12.31 Encounter for screening mammogram for malignant neoplasm of breast (principal); R92.333 Mammographic heterogeneous density, bilateral breasts
CPT/HCPCS: 77063; 77067